=== PATIENT | male | born 1990 | race Caucasian/White ===

== ENCOUNTER → 2017-06-08 | Outpatient (CLI) | payer BC ==
[~2017-06-08] MED LIST: IOPAMIDOL (ISOVUE-300) 100 ML BTL ONE
== END ==
LOC: FIMAGING 10:18
PROVIDERS: ATTEND Physician Assistant Medical
DX: R10.32 Left lower quadrant pain (principal); N50.812 Left testicular pain; R93.422 Abnormal radiologic findings on diagnostic imaging of left kidney
CPT/HCPCS: Q9967